=== PATIENT | female | born 1965 | race African-American/Black ===

== ENCOUNTER 2017-03-20 07:36 | Emergency (ER) | payer OTHER ==
[~2017-03-20] VITALS: Ht 175.3 cm; Wt 117.3 kg
[2017-03-20] MEDS ORDERED: ASPI-556 PO (07:49)
[2017-03-20] MEDS ORDERED: RANI-257 PO (07:49)
[2017-03-20] MEDS ORDERED: HYDR25TA PO (07:49)
[2017-03-20] MEDS ORDERED: PredniSONE 20 MG TABLET PO ONE (08:00)
[2017-03-20] MEDS ORDERED: DiphenhydrAMINE HCL 50 MG CAPSULE PO ONE (08:00)
[2017-03-20 08:04] VITALS: BP 137/91
== END 2017-03-20 08:17 | disposition home or self-care (01) ==
LOC: EMS 07:38
DX: L25.9 Unspecified contact dermatitis, unspecified cause (principal); K21.9 Gastro-esophageal reflux disease without esophagitis; I10 Essential (primary) hypertension; Z79.82 Long term (current) use of aspirin
CPT/HCPCS: 99283; J7512